=== PATIENT | female | born 1960 | race African-American/Black ===

== ENCOUNTER 2024-06-07 14:18 | Inpatient (IN) | payer OTHER ==
[2024-06-07 15:21] VITALS: BMI 29.0
[2024-06-07] MEDS ORDERED: POLYETHYLENE GLYCOL (HEALTHYLAX) 3350 17 GM PACKET PO PRN (15:52)
[2024-06-07] MEDS ORDERED: BENZONATATE 200 MG CAPSULE PO PRN (15:52)
[2024-06-07] MEDS ORDERED: IBUPROFEN 400 MG TABLET (FP) PO PRN (15:52)
[2024-06-07] MEDS ORDERED: BISMUTH SUBSALICYLATE 524 MG/30 ML PO PRN (15:52)
[2024-06-07] MEDS ORDERED: ONDANSETRON *ODT* 4 MG TABLET SL PRN (15:52)
[2024-06-07] MEDS ORDERED: NICOTINE POLACRILEX 2 MG GUM BUC PRN (15:52)
[2024-06-07] MEDS ORDERED: BENZOCAINE/MENTHOL (CHLORASEPTIC ) LOZENGE MM PRN (15:52)
[2024-06-07] MEDS ORDERED: LOPERAMIDE HCL 2 MG CAPSULE PO PRN (15:52)
[2024-06-07] MEDS ORDERED: guaiFENesin 600 MG TABLET.ER (FP) PO PRN (15:52)
[2024-06-07] MEDS ORDERED: NICOTINE POLACRILEX 2 MG LOZENGE BC PRN (15:52)
[2024-06-07] MEDS ORDERED: MAG HYDROX/AL HYDROX/SIMETH 30 ML UNIT-DOSE CUP PO PRN (15:52)
[2024-06-07] MEDS ORDERED: ACETAMINOPHEN 325 MG TABLET (FP) PO PRN (15:52)
[2024-06-07] MEDS: cloNIDine HCL 0.1 MG TABLET PO ONE (16:30)
[2024-06-07] MEDS ORDERED: cloNIDine HCL 0.1 MG TABLET ONE (17:29)
[2024-06-07] MEDS ORDERED: diazePAM 5 MG TABLET ONE ×2 (17:29→22:24)
[2024-06-07] MEDS: diazePAM 5 MG TABLET PO SCH (17:44)
[2024-06-07] MEDS ORDERED: IBUPROFEN 600 MG TABLET (FP) PO ONE (18:07)
[2024-06-07] MEDS: IBUPROFEN 600 MG TABLET (FP) PO PRN (18:09)
[2024-06-07] MEDS: LIDOCAINE 4% PATCH TP ONE (21:44)
[2024-06-07] MEDS: MELATONIN 5 MG TABLETS PO SCH (21:45)
[2024-06-07] MEDS: THIAMINE 100 MG TABLET PO SCH (21:45)
[2024-06-07] MEDS ORDERED: MELATONIN 5 MG TABLETS ONE (22:24)
[2024-06-07] MEDS: ATORVASTATIN CA 10 MG TABLET (FP) PO SCH (22:28)
[2024-06-07] MEDS: LIDOCAINE PATCH REMOVAL MC SCH (22:28)
[2024-06-08] MEDS ORDERED: diazePAM 5 MG TABLET ONE ×3 (05:47→11:03)
[2024-06-08] MEDS: diazePAM 5 MG TABLET PO SCH (05:50)
[2024-06-08] MEDS ORDERED: NICOTINE 14 MG/24 HOURS TOPICAL PATCH TD ONE (10:17)
[2024-06-08] MEDS ORDERED: PRENATAL VITAMINS W/ FOLIC ACID TABLET (FP) PO ONE ×2 (10:18→11:03)
[2024-06-08] MEDS: amLODIPine BESYLATE 5 MG TABLET (FP) PO SCH (11:00)
[2024-06-08] MEDS: ENALAPRIL MALEATE 10 MG TABLET PO SCH (11:01)
[2024-06-08] MEDS: METOPROLOL TARTRATE 50 MG TABLET (FP) PO SCH (11:01)
[2024-06-08] MEDS: HYDROCHLOROTHIAZIDE 50 MG TABLET PO SCH (11:02)
[2024-06-08] MEDS: PRENATAL VITAMINS W/ FOLIC ACID TABLET (FP) PO SCH (11:04)
[2024-06-08] MEDS: diazePAM 5 MG TABLET PO PRN (11:04)
[2024-06-08] MEDS: HYDROCHLOROTHIAZIDE 25 MG TABLET (FP) PO SCH (11:18)
[2024-06-08] MEDS: MAGNESIUM HYDROX 2400MG/30ML ORAL SUSPENSION 30 ML CUP PO PRN (15:23)
[2024-06-08 20:55] LABS: HEMOGLOBIN 11.2 GM/dL (10.7-15.3); MCH 33.1 pg (25.7-33.7); MCHC 32.9 g/dl (32.0-36.0); MEAN CELL VOLUME 100.4 fl (80-96); MEAN PLT VOLUME 8.9 fl (7.5-11.1); RBC 3.39 M/mm3 (3.60-5.2); RDW 18.3 % (11.6-15.6); WHITE BLOOD COUNT 4.1 K/mm3 (4.0-10.0)
[2024-06-08 21:08] LABS: CHLORIDE 99 mmol/L (98-107); POTASSIUM 3.1 mmol/L (3.5-5.1); SODIUM 137 mmol/L (136-145)
[2024-06-08 21:10] LABS: CALCIUM 8.8 mg/dL (8.5-10.1)
[2024-06-08 21:11] LABS: ALBUMIN 3.2 g/dl (3.4-5.0); ANION GAP 7 mmol/L (4-13); CO2 31 mmol/L (21-32); GLUCOSE,RANDOM 149 mg/dL (74-106)
[2024-06-08] MEDS: LIDOCAINE 4% PATCH TP SCH (21:13)
[2024-06-08 21:14] LABS: CREATININE 1.2 mg/dL (0.55-1.3); SGOT/AST 27 U/L (15-37); SGPT/ALT 13 U/L (13-61)
[2024-06-08 21:16] LABS: BILIRUBIN,TOTAL 0.6 mg/dL (0.2-1); TOT PROT 6.2 g/dl (6.4-8.2)
[2024-06-08 21:17] LABS: ALK PHOS 107 U/L (45-117); PLATELET COUNT 199 10^3/uL (134-434)
[2024-06-09] MEDS: LIDOCAINE PATCH REMOVAL MC SCH (01:22)
[2024-06-09] MEDS: diazePAM 5 MG TABLET PO SCH (06:10)
[2024-06-09] MEDS: NALOXONE (NYS OPIOID OVERDOSE PROGRAM) 4 MG/0.1 ML SPRAY NS SCH (13:58)
[2024-06-09] MEDS ORDERED: POTASSIUM CHLORIDE ORAL LIQUID 20 MEQ/15 ML PO ONE (14:30)
[2024-06-09] MEDS: POTASSIUM CHLORIDE ORAL LIQUID 20 MEQ/15 ML PO ONE ×2 (14:45→17:31)
[2024-06-10] MEDS: diazePAM 5 MG TABLET PO ONE (06:00)
[2024-06-10 06:41] VITALS: PULSE 60
[2024-06-10 09:41] VITALS: BP 127/75; RESP 16; TEMP 97.7
[2024-06-10] MEDS: NALOXONE (NYS OPIOID OVERDOSE PROGRAM) 4 MG/0.1 ML SPRAY NS SCH (12:17)
[2024-06-10 15:33] LABS: POTASSIUM 3.7 mmol/L (3.5-5.1)
[2024-06-10 15:36] LABS: CALCIUM 9.6 mg/dL (8.5-10.1)
[2024-06-10 15:37] LABS: BLOOD UREA NITROGEN 10.8 mg/dL (7-18)
== END 2024-06-10 11:50 | disposition home or self-care (01) | DRG 775 ==
LOC: YASAS 14:18 → Y6N 06-08 11:14
PROVIDERS: ADMIT Allergy & Immunology; ATTEND Allergy & Immunology
PROC: HZ2ZZZZ Detoxification Services for Substance Abuse Treatment (ICD-10-PCS; principal; 2024-06-08)
DX: F10.230 Alcohol dependence with withdrawal, uncomplicated (principal); F17.210 Nicotine dependence, cigarettes, uncomplicated; E87.6 Hypokalemia; E78.5 Hyperlipidemia, unspecified; G47.00 Insomnia, unspecified; I10 Essential (primary) hypertension; M54.50 Low back pain, unspecified; G89.29 Other chronic pain; R26.89 Other abnormalities of gait and mobility; Z99.89 Dependence on other enabling machines and devices; Z88.0 Allergy status to penicillin
CPT/HCPCS: 36415; 80048; 80053; 80307; 83036; 85027; 86780; 93005; 93010